=== PATIENT | male | born 1965 | race Caucasian/White ===

== ENCOUNTER 2018-09-02 16:06 | Emergency (ER) | payer BC ==
[2018-09-02] MEDS ORDERED: NS 0.9% 1000 ML* 1,000 ML IV ONE (16:38)
--- NOTE | 2018-09-02 16:53 | ED ---
Dizziness - HPI Summary HPI Summary: This pt is a 52 y/o male presenting to [facility] via EMS for dizziness that began suddenly today. Pt reports he was at work today where he was very physical moving boxes and furniture. He notes that he became dizzy suddenly. Additionally states nausea, tingling in fingers, feeling pulse in denominational and jaw , having urge to have a bowel movement. Denies chest pain, abd pain, SOB, LOC, syncope. Currently reports feeling dizzy, nauseous, with a very slight headache. Pt has never had this happen in the past. Denies any PMHx. Pt drinks alcohol rarely. No drug or tobacco use. - History Of Current Complaint Chief Complaint: EDDizziness Stated Complaint: DIZZINESS Time Seen by Provider: 09/02/18 16:24 Hx Obtained From: Patient Onset/Duration: Suddenly Timing: Minutes Severity Currently: Moderate Character: Dizzy Aggravating Factor(s): Nothing Alleviating Factor(s): Nothing Associated Signs And Symptoms: Positive: Nausea, Other: - POS: slight headache, tingling in fingers, urge to have bowel movement. NEG: LOC, syncope. Negative: Vomiting, Chest Pain, SOB, Fever, Chills - Allergies/Home Medications Allergies/Adverse Reactions: Allergies Allergy/AdvReac Type Severity Reaction Status Date / Time bee venom protein (honey bee) Allergy Swelling Verified 09/02/18 16:23 tomato Allergy Hives Verified 09/02/18 16:23 PMH/Surg Hx/FS Hx/Imm Hx Endocrine/Hematology History: Denies: Hx Anticoagulant Therapy, Hx Diabetes Cardiovascular History: Denies: Hx Hypertension Infectious Disease History: No Infectious Disease History: Denies: Traveled Outside the [place] in Last 30 Days - Family History Family History: Mother with lung CA - Social History Alcohol Use: Occasionally Substance Use Type: Reports: None Smoking Status (MU): Never Smoked Tobacco Review of Systems Negative: Fever, Chills Negative: Chest Pain Negative: Shortness Of Breath Gastrointestinal: Other - POS: urge to have bowel movement Positive: Nausea. Negative: Abdominal Pain, Vomiting Neurological: Other - POS: dizziness Positive: Headache, Paresthesia - in fingers. Negative: Syncope All Other Systems Reviewed And Are Negative: Yes Physical Exam - Summary Physical Exam Summary: Appearance: Well appearing, no pain distress Skin: warm, dry, reflects adequate perfusion Head/face: normal Eyes: EOMI, JANIE ENT: normal Neck: supple, nontender Respiratory: CTA, breath sounds present Cardiovascular: RRR, pulses symmetrical Abdomen: nontender, soft Bowel: present Musculoskeletal: normal, strength/ROM intact Neuro: normal, sensory motor intact, A&Ox3 Triage Information Reviewed: Yes Vital Signs On Initial Exam: Initial Vitals Temp Pulse Resp BP Pulse Ox 97.7 F 86 17 108/77 94 09/02/18 16:18 09/02/18 16:18 09/02/18 16:18 09/02/18 16:18 09/02/18 16:18 Vital Signs Reviewed: Yes - Cooper Coma Scale Best Eye Response: 4 - Spontaneous Best Motor Response: 6 - Obeys Commands Best Verbal Response: 5 - Oriented Coma Scale Total: 15 Diagnostics - Vital Signs Vital Signs Temp Pulse Resp BP Pulse Ox 09/02/18 16:18 97.7 F 86 17 108/77 94 - Laboratory Result Diagrams: 09/02/18 17:45 09/02/18 17:45 Lab Statement: Any lab studies that have been ordered have been reviewed, and results considered in the medical decision making process. - Radiology Chest XR Radiology Interpretation Completed By: Radiologist Summary of Radiographic Findings: IMPRESSION: No radiographic evidence for acute cardiopulmonary abnormality on this portable chest x-ray. Dr. Akers has reviewed this report. - CT Brain CT CT Interpretation Completed By: Radiologist Summary of CT Findings: IMPRESSION: No evidence of intracranial hemorrhage is noted. Dr. Akers has reviewed this report. - EKG 16:47 Cardiac Rate: NL - at 94 bpm EKG Rhythm: Sinus Rhythm Summary of EKG Findings: No acute changes. Re-Evaluation - Re-Evaluation First Eval Re-Evaluation Time: 18:31 Comment: Pt is still nauseous. Will wait for second troponin. Dizzy Course/Dx - Course Assessment/Plan: Pt is a 52 y/o male, with no PMHx, who presents for dizziness that began suddenly today. Pt reports he was at work today where he was very physical moving boxes and furniture. Additionally states nausea, tingling in fingers, feeling pulse in denominational and jaw, having urge to have a bowel movement. Chest XR is negative. Brain CT shows no evidence of intracranial hemorrhage is noted. Blood work was obtained. On re-evaluation pt is still nauseous. Will obtain second troponin, around 20:00. Therefore pt will be signed out to Dr. Pereira, pending disposition, awaiting test results. - Diagnoses Differential Diagnosis/HQI/PQRI: Coronary Artery Disease, Dysrhythmia, Hypovolemia, Vasovagal Reaction Provider Diagnoses: Dizziness Discharge - Sign-Out/Discharge Documenting (check all that apply): Sign-Out Patient Signing out patient TO: Claude Pereira - pending dispo, awaiting second trop - Discharge Plan Condition: Stable Referrals: Brit Tapia MD [Primary Care Provider] - - Billing Disposition and Condition Condition: STABLE - Attestation Statements Document Initiated by Scribe: Yes Documenting Scribe: Jacqui Calzada Provider For Whom Blas is Documenting (Include Credential): Giorgio Akers MD Scribe Attestation: Jacqui Mae, scribed for Giorgio Akers MD on 09/02/18 at 1835. Scribe Documentation Reviewed: Yes Provider Attestation: The documentation as recorded by the Jacqui ro accurately reflects the service I personally performed and the decisions made by Giorgio rodriguez MD
--- NOTE | 2018-09-02 17:09 | RAD ---
Indication: Dizziness and headache. CT of the brain was performed without IV contrast. Ventricular structures are midline. No midline shift is noted. The extra-axial spaces are unremarkable. There is no evidence of intracranial mass or hemorrhage. No other high or low density lesions are identified. Mastoid air cells and paranasal sinuses are otherwise unremarkable. IMPRESSION: No evidence of intracranial hemorrhage is noted
--- OUTSIDE RECORDS SUMMARY | 2018-09-02 17:12 | XMS REPORT | Continuity of Care Document ---
:1965 External Reference #:[id number] Author Name Brit Tapia MD Address [address] [place] [address] Care Team Providers Name Role Phone Brit Tapia MD FACP Primary Care Physician Unavailable Payers Type Date Identification Numbers Payment Provider Subscriber Effective: Policy Number: BS Of ABBI Chong 2010 [id number] Joaquín Expires: 2013 PayID: [id number] [address] [address] [place] [address] Effective: 2013 Policy Number: [id number] BS Of ABBI Yanes Expires: 2014 PayID: [id number] [facility] [address] [place] [address] Effective: 2014 Policy Number: [id number] BS Of ABBI Yanes PayID: [id number] [facility] [id number] [place] [address] Advance Directives Description No Information Available Problems Date Description Provider Status Onset: 09/07/2015 Obesity Brit Tapia MD Active Onset: 09/07/2015 Mixed hyperlipidemia Brit Tapia MD Active Onset: 07/18/2012 Impaired fasting glycaemia Brit Tapia MD Active Family History Date Family Member(s) Problem(s) Comments General Heart Disease Paternal GF S/P CABG x 3 in his 60's. "Men live for long" Onset: (age 65 Years) Father Heart Disease "No contact with father" Onset: (age 59 Years) Mother Lung Cancer Smoker Social History Type Date Description Comments Sex Unknown Marital Status 04/2012 Tobacco Use Start: Unknown Never Smoked Cigarettes ETOH Use 2012 Currently consumes 2-3 per week, wine, alcohol rum or beer. Tobacco Use Start: Unknown Patient has never smoked Smoking Status Reviewed: 01/30/17 Patient has never smoked Exercise 2012 Does not exercise Type/Frequency Allergies, Adverse Reactions, Alerts Description No Known Drug Allergies Medications Medication Date Status Form Strength Qnty SIG Indications Ordering Provider Celecoxib Active Capsules 200mg 30caps 1 by [id number] Perea A 8 mouth MD Willie every day with food for 2 weeks and than as needed. M54.16 Cyclobenzaprine 08/05/2018 Active Tablets 10mg 10tabs 1/2-1 by M5Reece.Latrice WernerPerea HCL mouth every A Wat[place], night as MD needed No Active 01/30/2017 - Hx Perea Medications 08/05/2018 Alissa Tapia MD Cephalexin 04/19/2016 - Hx Tablets 500mg 10tabs take 1 L05.01 Perea 05/04/2016 tablet by A Wattoo, mouth 2 MD times per day for infection No Active 07/01/2015 - Hx Unknown Medications 04/19/2016 Amoxicillin 06/21/2015 - Hx Capsules 500mg 30caps 1 by mouth 461.1 Perea 07/01/2015 three times A alissa Tapia MD No Active 07/18/2012 - Hx Perea Medications 06/21/2015 Alissa Tapia MD Aspirin 11/02/2008 - Hx Tablets 81mg 1 PO qd 278.00 Perea 11/05/2010 Alissa Tapia MD Immunizations CPT Code Status Date Vaccine Lot # [id number] Given 09/07/2015 Influenza Virus Split 3 Yrs And Above For Flu [id number] Intramuscular Use 83056 Given 08/06/2014 Influenza Virus Split 3 Yrs And Above For [id number] Flu Vacc Intramuscular Use 99706 Given 07/18/2012 Influenza Virus Split 3 Yrs And Above For FLU [id number] Intramuscular Use 62019 Given 10/07/2008 Tdap-Tetanus, Diphtheria Toxoids/Acellular TDAP [id number] Pertussis Vaccine 7+ 65586 Refused 11/30/2011 Influenza Virus Split 3 Yrs And Above For Intramuscular Use [id number] Refused 10/07/2008 Influenza Virus Vaccine Split Virus Use For Individual 3Yr Older Vital Signs Date Vital Result Comment 08/05/2018 12:46pm Heart Rate 80 /min BP Systolic 110 mmHg BP Diastolic 70 mmHg 05/15/2018 2:47pm Heart Rate 74 /min BP Systolic 110 mmHg BP Diastolic 75 mmHg BMI (Body Mass Index) 34.9 kg/m2 Weight 228.00 lb Height 67.75 inches 5'7.75" 01/30/2017 2:36pm Body Temperature 98.0 F O2 % BldC Oximetry 97 % Heart Rate 68 /min BP Systolic 122 mmHg BP Diastolic 80 mmHg BMI (Body Mass Index) 35.7 kg/m2 Weight 235.00 lb Height 68 inches 5'8" 09/07/2015 3:16pm O2 % BldC Oximetry 98 % Heart Rate 64 /min BP Systolic 122 mmHg BP Diastolic 75 mmHg BMI (Body Mass Index) 35.0 kg/m2 Weight 227.00 lb Height 67.5 inches 5'7.50" 06/21/2015 9:45am Body Temperature 98.4 F O2 % BldC Oximetry 97 % Heart Rate 80 /min BP Systolic 115 mmHg BP Diastolic 80 mmHg 06/17/2015 4:22pm Body Temperature 99.0 F Heart Rate 78 /min BP Systolic 115 mmHg BP Diastolic 75 mmHg 08/06/2014 1:03pm Body Temperature 98.1 F O2 % BldC Oximetry 96 % Heart Rate 92 /min BMI (Body Mass Index) 33.1 kg/m2 Weight 218.00 lb in office, clothed, with shoes Height 68 inches 5'8" 06/03/2013 1:36pm Heart Rate 70 /min BP Systolic 118 mmHg BP Diastolic 75 mmHg BMI (Body Mass Index) 34.2 kg/m2 Weight 225.00 lb Height 68 inches 5'8" 10/01/2012 9:37am BMI (Body Mass Index) 34.4 kg/m2 Weight 226.00 lb Height 68 inches 5'8" 07/18/2012 1:40pm Body Temperature 98.4 F O2 % BldC Oximetry 97 % Ra, AT Rest Heart Rate 91 /min BP Systolic 110 mmHg BP Diastolic 70 mmHg BMI (Body Mass Index) 34.1 kg/m2 Weight 224.00 lb Height 68 inches 5'8" 11/02/2008 9:44am Heart Rate 66 /min BP Systolic 128 mmHg BP Diastolic 80 mmHg BMI (Body Mass Index) 32.2 kg/m2 Weight 212.00 lb Height 68 inches 5'8" 10/07/2008 10:25am Body Temperature 97.7 F O2 % BldC Oximetry 98 % Heart Rate 87 /min BP Systolic 130 mmHg Bilateral BP Diastolic 85 mmHg Bilateral BP Systolic Recheck 130 mmHg BP Diastolic Recheck 85 mmHg BMI (Body Mass Index) 32.2 kg/m2 Weight 212.00 lb Height 68 inches 5'8" Results Test Date Facility Test Result H/L Range Note Urinalysis Profile 05/10/2018 [facility] [place] [address] [phone] Urine Appearance Clear Urine Specific Mozier 1.023 1.010-1.030 Urine pH 5.0 5-9 Urine Urobilinogen Negative Negative Urine Ketones 1+ Negative Urine Protein Negative Negative Urine Leukocytes Negative Negative Urine Blood Negative Negative Urine Nitrite Negative Negative Urine Bilirubin Negative Negative Urine Glucose Negative Negative CBC No Diff 05/10/2018 [facility] White Blood 7.1 10^3/uL 3.5 -10.8 [place] [address] Count [phone] Red Blood Count 5.71 10^6/uL High 4.00-5.40 Hemoglobin 17.1 g/dL 14.0-18.0 Hematocrit 49 % 42-52 Mean Corpuscular Volume 86 fL 80-94 Mean Corpuscular Hemoglobin 30 pg 27-31 Mean Corpuscular HGB Conc 35 g/dL 31-36 Red Cell Distribution Width 13 % 10.5-15 Platelet Count 215 10^3/uL 150-450 Mean Platelet Volume 8.5 um3 7.4-10.4 Comp Metabolic Panel 05/10/2018 [facility] Sodium 140 mmol/L 135-145 [place] [address] [phone] Potassium 4.5 mmol/L 3.5-5.0 Chloride 104 mmol/L 101-111 Co2 Carbon Dioxide 28 mmol/L 22-32 Anion Gap 8 mmol/L 2-11 Glucose 91 mg/dL 70-100 Blood Urea Nitrogen 14 mg/dL 6-24 Creatinine 0.80 mg/dL 0.67-1.17 BUN/Creatinine Ratio 17.5 8-20 Calcium 9.6 mg/dL 8.6-10.3 Total Protein 6.8 g/dL 6.4-8.9 Albumin 4.4 g/dL 3.2-5.2 Globulin 2.4 g/dL 2-4 Albumin/Globulin Ratio 1.8 1-3 Total Bilirubin 0.70 mg/dL 0.2-1.0 Alkaline Phosphatase 66 U/L 34-104 Alt 19 U/L 7-52 Ast 17 U/L 13-39 Egfr Non- 101.9 >60 Egfr 123.3 >60 1 Lipid Profile 05/10/2018 [facility] Triglycerides 82 mg/dL < 150 2 (Trig/Chol/HDL) [place] [address] [phone] Cholesterol 181 mg/dL <200 3 HDL Cholesterol 35.2 mg/dL Low >40 4 LDL Cholesterol 129 mg/dL <160 5 Laboratory test 05/10/2018 [facility] Hemoglobin A1c 5.2 % 4.0-5.6 6 [place] [address] (Glyco HGB) [phone] PSA Screening 1.307 ng/mL 0-4.000 7 Order 02/09/2017 [facility] Colonoscopy Polyps 5 [place] [address] F/U [phone] Laboratory test 02/09/2017 [facility] Surgical SEE RESULT 8 [place] [address] Pathology BELOW [phone] Comp Metabolic 01/24/2017 [facility] Sodium 139 mmol/L 133-1 [place] [address] 45 [phone] Potassium 4.8 mmol/L 3.5-5.0 Chloride 104 mmol/L 101-111 Co2 Carbon Dioxide 32 mmol/L 22-32 Anion Gap 3 mmol/L 2-11 Glucose 105 mg/dL High 70-100 Blood Urea Nitrogen 12 mg/dL 6-24 Creatinine 0.89 mg/dL 0.67-1.17 BUN/Creatinine Ratio 13.5 8-20 Calcium 9.6 mg/dL 8.6-10.3 Total Protein 6.8 g/dL 6.4-8.9 Albumin 4.1 g/dL 3.2-5.2 Globulin 2.7 g/dL 2-4 Albumin/Globulin Ratio 1.5 1-3 Total Bilirubin 0.60 mg/dL 0.2-1.0 Alkaline Phosphatase 64 U/L 34-104 Alt 23 U/L 7-52 Ast 15 U/L 13-39 Egfr Non- 90.5 >60 Egfr 116.4 >60 9 Lipid Profile 01/24/2017 [facility] Triglycerides 125 mg/dL < 150 10 (Trig/Chol/HDL) [place] [address] [phone] Cholesterol 179 mg/dL <200 11 HDL Cholesterol 37.9 mg/dL Low >140 12 LDL Cholesterol 116 mg/dL <160 13 Laboratory test 01/24/2017 [facility] Hemoglobin A1c 4.9 % Less than 14 [place] [address] (Glyco HGB) 6.0 [phone] PSA Screening 1.400 ng/mL 0-4.000 15 Urinalysis Profile 01/24/2017 [facility] [place] [address] [phone] Urine Appearance Cloudy Urine Specific Mozier 1.024 1.010-1.030 Urine pH 5.0 5-9 Urine Urobilinogen Negative Negative Urine Ketones Negative Negative Urine Protein Negative Negative Urine Leukocytes Negative Negative Urine Blood Negative Negative Urine Nitrite Negative Negative Urine Bilirubin Negative Negative Urine Glucose Negative Negative CBC No Diff 01/24/2017 [facility] White Blood 7.5 10^3/uL 3.5 -10.8 [place] [address] Count [phone] Red Blood Count 5.97 10^6/uL High 4.0-5.4 Hemoglobin 17.2 g/dL 14.0-18.0 Hematocrit 51 % 42-52 Mean Corpuscular Volume 86 fL 80-94 Mean Corpuscular Hemoglobin 29 pg 27-31 Mean Corpuscular HGB Conc 34 g/dL 31-36 Red Cell Distribution Width 14 % 10.5-15 Platelet Count 206 10^3/uL 150-450 Mean Platelet Volume 8 um3 7.4-10.4 CBC No Diff 10/25/2015 [facility] White Blood 7.2 10^3/uL 3.5 -10.8 [place] [address] Count [phone] Red Blood Count 5.61 10^6/uL High 4.0-5.4 Hemoglobin 16.7 g/dL 14.0-18.0 Hematocrit 50 % 42-52 Mean Corpuscular Volume 88 fL 80-94 Mean Corpuscular Hemoglobin 30 pg 27-31 Mean Corpuscular HGB Conc 34 g/dL 31-36 Red Cell Distribution Width 13 % 10.5-15 Platelet Count 195 10^3/uL 150-450 Mean Platelet Volume 8 um3 7.4-10.4 Comp Metabolic Panel 10/25/2015 [facility] Sodium 140 mmol/L 133-145 [place], [place] [address] [phone] Potassium 4.3 mmol/L 3.5-5.0 Chloride 106 mmol/L 101-111 Co2 Carbon Dioxide 30 mmol/L 22-32 Anion Gap 4 mmol/L 2-11 Glucose 108 mg/dL High 70-100 Blood Urea Nitrogen 14 mg/dL 6-24 Creatinine 0.91 mg/dL 0.67-1.17 BUN/Creatinine Ratio 15.4 8-20 Calcium 9.1 mg/dL 8.6-10.3 Total Protein 6.5 g/dL 6.4-8.9 Albumin 4.0 g/dL 3.2-5.2 Globulin 2.5 g/dL 2-4 Albumin/Globulin Ratio 1.6 1-3 Total Bilirubin 0.40 mg/dL 0.2-1.0 Alkaline Phosphatase 69 U/L 34-104 Alt 14 U/L 7-52 Ast 12 U/L Low 13-39 Egfr Non- 88.6 >60 Egfr 113.9 >60 16 Laboratory test 10/25/2015 [facility] Hemoglobin A1c 5.2 % Less than 17 [place] [address] (Glyco HGB) 6.0 [phone] Insulin Level 13.6 mcIU/mL 2.6 - 24.9 18 Lipid Profile 10/25/2015 [facility] Triglycerides 82 mg/dL 19 (Trig/Chol/HDL) [place], [place] [id number] [phone] Cholesterol 156 mg/dL 20 HDL Cholesterol 39.5 mg/dL 21 LDL Cholesterol 100 mg/dL 22 Order 07/03/2013 [facility] Colonoscopy Normal [address] [place] [address] [phone] Surgical 09/12/2012 [facility] S RUN DATE: 23 [place] [address] <SEE [phone] NOTE> CBC No Diff 07/23/2012 [facility] White Blood 7.4 CUMM 4.8-1 [place] [address] Count 0.8 [phone] Red Cell Count 5.67 CUMM 4.6-6.2 Hemoglobin 17.3 g/dL 14.0-18.0 Hematocrit 50 % 42-52 Mean Corpuscular Volume 88 um3 80-94 Mean Corpuscular Hemoglob 31 pg 27-31 Mean Corpuscular HGB Cone 35 g/dL 32-36 Redcell Distribution WDTH 14 % 10.5-15 Platelet Count 207 CUMM 150-450 Mean Platelet Volume 9.1 um3 7.4-10.4 Laboratory test 07/23/2012 [facility] Ferritin 172 NG/ML 24- 336 [place] [address] [phone] Iron & Iron Binding 07/23/2012 [facility] Iron Total 114 g/dL 45-182 [place] [address] [phone] Unsaturated Iron Binding 244 g/dL Total Iron Binding Capacity 358 g/dL 250-450 % Iron Saturation 32 % 15-55 Laboratory test finding 07/23/2012 [facility] Insulin SEE BELOW () 24 [place] [address] [phone] Glucose 98 mg/dL 70-100 Laboratory test 07/23/2012 [facility] Hemoglobin A1c 4.8 % Less Than 25 [place] [address] 6.0 [phone] Lipid Profile 07/23/2012 [facility] Triglyceride 233 High 40- 200 (Trig/Chol/HDL) [place] [address] mg/dL [phone] Cholesterol 202 mg/dL High Less Than 200 26 High Density Lipoprotein 38 mg/dL Low 40-60 27 Cholesterol/HDL Ratio 5.32 AVERAGE High 1-4.97 Low Density Lipoprotein 117 mg/dL Less Than 160 28 Basic Metabolic Panel 06/15/2012 [facility] Sodium 140 mmol/L 135-145 [place] [address] [phone] Potassium 4.1 mmol/L 3.5-5.0 Chloride 104 mmol/L 101-111 Co2 (Carbon Dioxide) 31.0 mmol/L 22-32 Anion Gap 5.0 mmol/L 2-11 29 Glucose 133 mg/dL High 70-100 BUN 8 mg/dL 6-24 Creatinine 1.3 mg/dL 0.50-1.40 One Over Creatinine 0.76 BUN/Creatinine Ratio 6.2 Low 8-20 Calcium 9.2 mg/dL 8.1-9.9 eGFR Non- 59.7 > 60 eGFR 76.8 > 60 30 CBC No Diff 06/15/2012 [facility] White Blood 10.9 CUMM High 4.8-10.8 [place] [address] Count [phone] Red Cell Count 5.12 CUMM 4.6-6.2 Hemoglobin 15.4 g/dL 14.0-18.0 Hematocrit 45 % 42-52 Mean Corpuscular Volume 89 um3 80-94 Mean Corpuscular Hemoglob 30 pg 27-31 Mean Corpuscular HGB Cone 34 g/dL 32-36 Redcell Distribution WDTH 13 % 10.5-15 Platelet Count 140 CUMM Low 150-450 Mean Platelet Volume 8.6 um3 7.4-10.4 Comp Metabolic Panel 06/14/2012 [facility] Sodium 139 mmol/L 135-145 [place] [address] [phone] Potassium 3.7 mmol/L 3.5-5.0 Chloride 102 mmol/L 101-111 Co2 (Carbon Dioxide) 28.0 mmol/L 22-32 Anion Gap 9.0 mmol/L 2-11 31 Glucose 142 mg/dL High 70-100 BUN 8 mg/dL 6-24 Creatinine 0.8 mg/dL 0.50-1.40 One Over Creatinine 1.25 BUN/Creatinine Ratio 10.0 8-20 Calcium 9.6 mg/dL 8.1-9.9 Total Protein 7.3 GM/DL 6.2-8.1 Albumin 4.2 GM/DL 3.6-5.4 Globulin 3.1 GM/DL 2-4 Albumin/Globulin Ratio 1.4 1-3 Bilirubin Total 1.0 mg/dL 0.4-1.5 32 Alkaline Phosphatase 64 U/L 39-117 Alt (SGPT) 22 U/L 17-63 Ast (Sgot) 19 U/L 12-42 eGFR Non- 104.5 > 60 eGFR 134.4 > 60 33 CBC Auto Diff 06/14/2012 [facility] White Blood 22.1 CUMM High 4.8-10.8 [place] [address] Count [phone] Red Cell Count 5.48 CUMM 4.6-6.2 Hemoglobin 16.9 g/dL 14.0-18.0 Hematocrit 48 % 42-52 Mean Corpuscular Volume 87 um3 80-94 Mean Corpuscular Hemoglob 31 pg 27-31 Mean Corpuscular HGB Cone 35 g/dL 32-36 Redcell Distribution WDTH 13 % 10.5-15 Platelet Count 188 CUMM 150-450 Mean Platelet Volume 8.4 um3 7.4-10.4 Gran % 89.6 % High 38-83 Lymph % 4.4 % Low 20-45 Mononuclear % 5.4 % 1-9 Eosinophil % 0 % 0-6 Basophil % 0.6 % 0-2 Abs Lymphs 1.0 1.0-4.8 Abs Mononuclear 1.2 High 0-0.8 Absolute Neutrophil Count 19.8 High 1.5-7.7 Abs Eosinophils 0 0-0.6 Abs Basophils 0.1 0-0.2 Urinalysis 06/14/2012 [facility] U[place] [address] [phone] Appearance-Urine CLEAR Clear Specific Mozier-Ur 1.023 1.010-1.030 Esterase-Urine NEGATIVE Negative Nitrite NEGATIVE Negative Fedgxmsisjkn-Ev-BMT NEGATIVE Negative Protein-Urine TRACE Negative PH-Urine 7.0 5-9 Blood-Urine NEGATIVE Negative Ketones-Urine NEGATIVE Negative Bilirubin-Ur NEGATIVE Negative Glucose-Urine NEGATIVE Negative Hemogram 10/08/2008 [facility] White Blood Count 7.9 CUMM 4.8 -10.8 [place] [address] [phone] Red Cell Count 5.90 CUMM High 4.2-5.4 Hemoglobin 17.4 g/dL High 12.0-16.0 Hematocrit 50 % High 35-47 Mean Corpuscular Volume 85 um3 79-97 Mean Corpuscular Hemoglob 30 pg 27-31 Mean Corpuscular HGB Cone 35 g/dL 32-36 Platelet Count 224 CUMM 150-450 Comp Metabolic Panel 10/08/2008 [facility] Sodium 138 mmol/L 135-145 [place], [place] [id number] [phone] Potassium 4.3 mmol/L 3.5-5.0 Chloride 101 mmol/L 101-111 Co2 (Carbon Dioxide) 31.0 mmol/L 22-32 Anion Gap 6.0 mmol/L 2-11 34 Glucose 101 mg/dL High 70-100 35 BUN 13 mg/dL 6-24 Creatinine 0.85 mg/dL 0.50-1.40 One Over Creatinine 1.10 BUN/Creatinine Ratio 15.3 8-20 Calcium 9.9 mg/dL 8.1-9.9 36 Total Protein 7.1 GM/DL 6.2-8.1 Albumin 4.2 GM/DL 3.6-5.4 Globulin 2.9 GM/DL 2-4 Albumin/Globulin Ratio 1.4 1-3 Bilirubin Total 1.1 mg/dL 0.4-1.5 Alkaline Phosphatase 61 U/L 30-110 Alt (SGPT) 18 U/L 14-54 Ast (Sgot) 15 U/L 12-42 Laboratory test 10/08/2008 [facility] TSH 0.99 MIU/ML 0.34- 5.60 finding [place], [place] [id number] [phone] Lipid Profile 10/08/2008 [facility] Triglyceride 150 mg/dL 40 -200 (Trig/Chol/HDL) [place], [place] [id number] [phone] Cholesterol 195 mg/dL Less Than 200 37 High Density Lipoprotein 36 mg/dL Low 40-60 38 Cholesterol/HDL Ratio 5.42 AVERAGE High 1-4.44 Low Density Lipoprotein 129 mg/dL High Less Than 100 39 Laboratory test 10/08/2008 [facility] CRP High 1.3 < 7.48 [place] [address] Sensitivity [phone] C Reactive Protein High Sensit 1.3 mg/L < 7.48 40 1 Because ethnic data is not always readily available, this report includes an eGFR for both -Americans and non- Americans. The National Kidney Disease Education Program (NKDEP) does not endorse the use of the MDRD equation for patients that are not between the ages of 18 and 70, are , have extremes of body size, muscle mass, or nutritional status, or are non- or non-. According to the National Kidney Foundation, irrespective of diagnosis, the stage of the disease is based on the level of kidney function: Stage Description GFR(mL/min/1.73 m(2)) 1 Kidney damage with normal or decreased GFR 90 2 Kidney damage with mild decrease in GFR 60-89 3 Moderate decrease in GFR 30-59 4 Severe decrease in GFR 15-29 5 Kidney failure <15 (or dialysis) 2 Desirable: <150 Borderline High: 150-199 High: 200-499 Very High: >500 3 Desirable: <200 Borderline High: 200-239 High: >239 4 Low: <40 Desirable: 40-60 High: >60 5 Desirable: <100 Near Optimal: 100-129 Borderline High: 130-159 High: 160-189 Very High: >189 6 Therapeutic target for the treatment of diabetes mellitus patients is <7% HBA1C, and in selective patients <6.0%. Please refer to [place] [employer] Association diabetic care guidelines for further information. 7 Serum levels of PSA measured using the Yessenia Teodoro DXI Hybritech immunoassay should not be interpreted as absolute evidence of the presence or absence of disease. The PSA value should be used in conjunction with other pertinent clinical diagnostic procedures. The values obtained with different assay methods or kits cannot be used interchangeably. 8 SEE RESULT BELOW Name: HITESH SOTO : [address]: Marito Vazquez MD Acct: [id number] Unit: [id number] AGE: 51 Location: [facility] Re02/09/17 SEX: M Status: DEP REF SPEC: [id number] VERITO: 02/09/17-[address] [facility] [address]: Marito Vazquez MD REQ: [id number] RECD: 02/09/17 STATUS: CASSIE MURRY DR: Brit Tapia MD _ ORDERED: LEVEL IV/3 FINAL DIAGNOSIS 1. Colon, cecal, biopsy: -- Tubular adenoma. -- No high grade dysplasia or malignancy. 2. Colon, ileocecal polyp, biopsy: -- Tubular adenoma. -- No high grade dysplasia or malignancy. 3. Colon, mid descending, biopsy: -- Tubular adenoma. -- No high grade dysplasia or malignancy. POST-OPERATIVE DIAGNOSIS Colonoscopy to cecum with ease, excellent prep. Conclusions/Plan: Three polyps; to be determined GROSS DESCRIPTION 1. The specimen is received in formalin labeled, Biopsy Cecal Cap Polyp, and consists of two speckled mckinley-pink irregular to polypoid soft tissue fragments measuring 0.8 x 0.4 by up to 0.2 cm and 0.9 x 0.3 by up to 0.2 cm, which are entirely submitted in one cassette. 2. The specimen is received in formalin labeled, Biopsy Ileocecal Polyp, and consists of a 0.3 x 0.2 x 0.2 cm mckinley-white irregular to polypoid soft tissue fragment, which is entirely submitted in one cassette. 3. The specimen is received in formalin labeled, Mid Descending Colon Polyp , and consists of two mckinley-pink irregular to polypoid soft tissue fragments measuring 0.4 x 0.2 x 0.1 cm and CONTINUED ON NEXT PAGE * ML=Testing performed at Main Lab DEPARTMENT OF PATHOLOGY, [address] [place] [address] Enrrique Del Real M.D. Director [facility] # [id number] RUN DATE: 02/12/17 [facility] LAB LIVE PAGE 2 Patient: HITESH SOTO [id number] (Continued) GROSS DESCRIPTION (Continued) GROSS DESCRIPTION (Continued) 0.5 x 0.4 x 0.2 cm, which are entirely submitted in one cassette. Signed (signature on file) Enrrique Del Real MD [id number] END OF REPORT * ML=Testing performed at Main Lab DEPARTMENT OF PATHOLOGY, [address] [place] [address] Enrrique Del Real M.D. Director [facility] # [id number] 9 Because ethnic data is not always readily available, this report includes an eGFR for both -Americans and non- Americans. The National Kidney Disease Education Program (NKDEP) does not endorse the use of the MDRD equation for patients that are not between the ages of 18 and 70, are , have extremes of body size, muscle mass, or nutritional status, or are non- or non-. According to the National Kidney Foundation, irrespective of diagnosis, the stage of the disease is based on the level of kidney function: Stage Description GFR(mL/min/1.73 m(2)) 1 Kidney damage with normal or decreased GFR 90 2 Kidney damage with mild decrease in GFR 60-89 3 Moderate decrease in GFR 30-59 4 Severe decrease in GFR 15-29 5 Kidney failure <15 (or dialysis) 10 Desirable <150 Borderline high 150-199 High 200-499 Very High >500 11 Desirable <200 Borderline high 200-239 High >239 12 Low <40 Desirable: 40-60 High: >60 13 Desirable: <100 mg/dL Near Optimal: 100-129 mg/dL Borderline High: 130-159 mg/dL High: 160-189 mg/dL Very High: >189 mg/dL 14 Therapeutic target for the treatment of diabetes Mellitus patients is <7% HBA1C, and in selective patients <6.0%.Please refer to [place] [employer] Association Diabetic care guidelines for further information. 15 Serum levels of PSA measured using the Yessenia Matchalarm DXI Hybritech immunoassay should not be interpreted as absolute evidence of the presence or absence of disease. The PSA value should be used in conjunction with other pertinent clinical diagnostic procedures. The values obtained with different assay methods or kits cannot be used interchangeably. 16 Because ethnic data is not always readily available, this report includes an eGFR for both -Americans and non- Americans. The National Kidney Disease Education Program (NKDEP) does not endorse the use of the MDRD equation for patients that are not between the ages of 18 and 70, are , have extremes of body size, muscle mass, or nutritional status, or are non- or non-. According to the National Kidney Foundation, irrespective of diagnosis, the stage of the disease is based on the level of kidney function: Stage Description GFR(mL/min/1.73 m(2)) 1 Kidney damage with normal or decreased GFR 90 2 Kidney damage with mild decrease in GFR 60-89 3 Moderate decrease in GFR 30-59 4 Severe decrease in GFR 15-29 5 Kidney failure <15 (or dialysis) 17 Therapeutic target for the treatment of diabetes Mellitus patients is <7% HBA1C, and in selective patients <6.0%.Please refer to [place] [employer] Association Diabetic care guidelines for further information. 18 Test Performed by: [facility] [address] [place] [address] Landscape Management Technician: Kong Del Real II, M.D., Ph.D. 19 Desirable <150 Borderline high 150-199 High 200-499 Very High >500 20 Desirable <200 Borderline high 200-239 High >239 21 Low <40 Desirable: 40-60 High: >60 22 Desirable: <100 mg/dL Near Optimal: 100-129 mg/dL Borderline High: 130-159 mg/dL High: 160-189 mg/dL Very High: >189 mg/dL 23 RUN DATE: 09/13/12 [facility] LAB LIVE PAGE 1 RUN TIME: [address] [place] [address] Specimen Inquiry Name: HITESH SOTO : [address]: Milan Navarro MD Acct: [id number] Unit: [id number] AGE: 46 Location: ENDO Re09/12/12 SEX: M Status: REG REF SPEC: [id number] VERITO: 09/12/12- SUBM DR: Milan Navarro MD REQ: [id number] RECD: 09/12/12 STATUS: CASSIE MURRY DR: Brit Tapia MD _ ORDERED: LEVEL IV/3 FINAL DIAGNOSIS 1. Colon, 18 cm., biopsy: A. Villoglandular adenoma. B. No high grade dysplasia identified. 2. Colon, 18 cm., biopsy: A. Villoglandular adenoma. B. No high grade dysplasia identified. 3. Colon, 18 cm., biopsy: A. Villoglandular adenoma. B. No high grade dysplasia identified. CLINICAL HISTORY Rectal bleeding; screening POST-OPERATIVE DIAGNOSIS Colonoscopy to cecum, good prep - 3 cm. pedunculated polyp at 18 cm.; colon polypectomy GROSS DESCRIPTION 1. The specimen is received in formalin labelled Hitesh AlissaElizabeth Soto, Colon Polyp at 18 cm., and consists of a lobulated mckinley to brown-red, polypoid mass measuring 2.8 x 2.5 x 2.0 cm. The specimen is serially sectioned and submitted entirely in 1A through 1D. 2. The specimen is received in formalin labelled Christianbret AlissaElizabeth Soto, Colon Polyp at 18 cm., and consists of three mckinley, irregular, polypoid fragments measuring 1.9 x 1.1 x 0.7 cm. in aggregate. Submitted entirely, one cassette. 3. The specimen is received in formalin labelled Hitesh AlissaElizabeth Soto, Colon Polyp at 18 cm., and CONTINUED ON NEXT PAGE * ML=Testing performed at Main Lab DEPARTMENT OF PATHOLOGY, [address] [place] [address] Enrrique Del Real M.D. Director [facility] Permit #[id number] RUN DATE: 09/13/12 [facility] LAB LIVE PAGE 2 RUN TIME: [address] [place] [id number] Specimen Inquiry Patient: HITESH SOTO [id number] (Continued) GROSS DESCRIPTION (Continued) GROSS DESCRIPTION (Continued) consists of multiple lobulated mckinley to brown-red fragments measuring 2.2 x 1.8 x 0.6 cm. in aggregate. Submitted entirely, one cassette. Signed (signature on file) Enrrique Del Real MD [id number] END OF REPORT * ML=Testing performed at Main Lab DEPARTMENT OF PATHOLOGY, [address] [place] [address] Enrrique Del Real M.D. Director [facility] Permit #[id number] Insulin, S was cancelled on 07/25/2012 at 13:18; Hemolyzed. Test Performed by: [place] [address] Landscape Management Technician: Vito Shay III, M.D. 25 THERAPEUTIC TARGET FOR THE TREATMENT OF DIABETES MELLITUS PATIENTS IS <7% HBA1C, AND IN SELECTIVE PATIENTS <6.0%. PLEASE REFER TO [place] [employer] DIABETIC CARE GUIDELINES FOR FURTHER INFORMATION. 26 CHOLESTEROL INTERPRETATION: Desirable: Less than 200 MG/DL Borderline-High Risk: 200-239 MG/DL High-Risk: 240 MG/DL and over 27 HDL INTERPRETATION: Undesirable: High Risk: Less than 40 MG/DL Desirable: Low Risk: Greater than 60 MG/DL 28 LDL INTERPRETATION: Low Risk Optimal Level: LDL Less than 100 MG/DL Near or Above Optimal: LDL 100-129 MG/DL Borderline High Risk: LDL 130-159 MG/DL High Risk: LDL 160-189 MG/DL Very High Risk: LDL Greater than 189 MG/DL 29 Anion gap measurement may be of limited value in the presence of any alkalosis, especially in a combined acid base disorder. . 30 Because ethnic data is not always readily available, this report includes an eGFR for both -Americans and non- Americans. The National Kidney Disease Education Program (NKDEP) does not endorse the use of the MDRD equation for patients that are not between the ages of 18 and 70, are , have extremes of body size, muscle mass, or nutritional status, or are non- or non-. According to the National Kidney Foundation, irrespective of diagnosis, the stage of the disease is based on the level of kidney function: Stage Description GFR(mL/min/1.73 m(2)) 1 Kidney damage with normal or decreased GFR 90 2 Kidney damage with mild decrease in GFR 60-89 3 Moderate decrease in GFR 30-59 4 Severe decrease in GFR 15-29 5 Kidney failure <15 (or dialysis) 31 Anion gap measurement may be of limited value in the presence of any alkalosis, especially in a combined acid base disorder. . 32 A metabolite of Naproxen, O-desmethylnaproxen, has been shown to interfere with the Jendrassik-Maben method for measuring total bilirubin. Samples from patients who have taken Naproxen have shown spurious elevation in total bilirubin levels. 33 Because ethnic data is not always readily available, this report includes an eGFR for both -Americans and non- Americans. The National Kidney Disease Education Program (NKDEP) does not endorse the use of the MDRD equation for patients that are not between the ages of 18 and 70, are , have extremes of body size, muscle mass, or nutritional status, or are non- or non-. According to the National Kidney Foundation, irrespective of diagnosis, the stage of the disease is based on the level of kidney function: Stage Description GFR(mL/min/1.73 m(2)) 1 Kidney damage with normal or decreased GFR 90 2 Kidney damage with mild decrease in GFR 60-89 3 Moderate decrease in GFR 30-59 4 Severe decrease in GFR 15-29 5 Kidney failure <15 (or dialysis) 34 Anion gap measurement may be of limited value in the presence of any alkalosis, especially in a combined acid base disorder. . 35 Note change in reference range as of 06/25/08. The change was based on recommendations from the [place] [employer]. 36 Please note change in reference range effective 08 . 37 CHOLESTEROL INTERPRETATION: Desirable: Less than 200 MG/DL Borderline-High Risk: 200-239 MG/DL High-Risk: 240 MG/DL and over 38 HDL INTERPRETATION: Undesirable: High Risk: Less than 40 MG/DL Desirable: Low Risk: Greater than 60 MG/DL 39 LDL INTERPRETATION: Low Risk Optimal Level: LDL Less than 100 MG/DL Near or Above Optimal: LDL 100-129 MG/DL Borderline High Risk: LDL 130-159 MG/DL High Risk: LDL 160-189 MG/DL Very High Risk: LDL Greater than 189 MG/DL 40 Less Than 1.0......Low Risk of Cardiovascular Disease 1.0-3.0............Medium Risk (<2 Fold Increase) Greater Than 3.0...High Risk (Approximately 2-Fold Increase) The above guidelines are referenced in "Markers of Inflammation and Cardiovascular Disease: Application to Clinical and Public Health Practice." A Statement for Health Professionals from the Centers for Disease Control and Prevention and the [place] [employer]. (Reference: Circulation 2003 107:499-511) SERUM LEVELS OF HIGH SENSITIVITY C-REACTIVE PROTEIN MEASURED BY THE [employer] LXi 725 SYSTEM SHOULD NOT BE INTERPRETTED ABSOLUTE EVIDENCE OF THE PRESENCE OR ABSENCE OF DISEASE. A HIGH SENSITIVITY CRP VALUE SHOULD BE USED IN CONJUNCTION WITH OTHER PERTINENT CLINICAL AND DIAGNOSTIC INFORMATION. Procedures Date Code Description Status 02/09/2017 84689632 Colonoscopy Completed 07/03/2013 [id number] Colonoscopy Completed 09/12/2012 [id number] Colonoscopy Completed Encounters Type Date Location Provider Dx Diagnosis Office Visit 08/05/2018 12:20p Main Office Brit Tapia MD M54.5 Low back pain M54.16 Radiculopathy, lumbar region Office Visit 05/15/2018 2:40p Main Office Brit Estrella Z00.01 Encounter for MD [facility] general adult medical exam w abnormal findings M77.11 Lateral epicondylitis, right elbow Office Visit 01/30/2017 2:40p Main Office Brit Estrella Z00.01 Encounter for MD [facility] general adult medical exam w abnormal findings Office Visit 04/27/2016 2:20p Main Office Brit Estrella L05.01 Pilonidal cyst MD [facility] with abscess Office Visit 04/19/2016 1:20p Main Office Brit Estrella L05.01 Pilonidal cyst MD [facility] with abscess Office Visit 09/07/2015 3:00p Main Office Brit Estrella Z00.00 Encntr for general MD [facility] adult medical exam w/o abnormal findings R73.01 Impaired fasting glucose E78.2 Mixed hyperlipidemia E66.09 Other obesity due to excess calories Z23 Encounter for immunization Office Visit 06/21/2015 9:20a Main Office Brit Estrella 461.1 Sinusitis Acute MD [facility] Frontal Office Visit 06/17/2015 3:20p Main Office Brit Estrella 079.99 Viral Infection MD [facility] Unspec Office Visit 08/06/2014 1:00p Main Office Brit Estrella 372.71 Conjunctival MD [facility] Hyperemia V04.81 Need For Prophylactic Vaccination & Inoculation/Influenza Office Visit 06/03/2013 2:20p Main Office Brit Estrella 272.2 Hyperlipidemia Mixed MD [facility] 790.21 Impaired Fasting Glucose 278.00 Obesity Unspec 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 536.8 Stomach Dyspepsia & Other Spec Disorders Of Function Office Visit 10/01/2012 9:20a Main Office Brit Tapia 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 272.2 Hyperlipidemia Mixed 790.21 Impaired Fasting Glucose Office Visit 07/18/2012 1:40p Main Office Brit Estrella 569.3 Hemorrhage Rectum & MD [facility] Anus 536.8 Stomach Dyspepsia & Other Spec Disorders Of Function 790.21 Impaired Fasting Glucose V04.81 Need For Prophylactic Vaccination & Inoculation/Influenza Office Visit 11/02/2008 9:40a Main Office Brit Estrella 272.2 Hyperlipidemia Mixed MD [facility] V17.3 History Family Ischemic Heart Disease 278.00 Obesity Unspec Office Visit 10/07/2008 10:20a Main Office Brit Estrella V70.0 Examination General MD [facility] Medical Routine AT [facility] Care Facility 569.3 Hemorrhage Rectum & Anus 278.00 Obesity Unspec V77.91 Screening For Lipoid Disorders V06.1 Mqrrbfkcuy-Hyijytz-Kcfuyoqp Combined (DTaP) Plan of Treatment 08/05/2018 - Brit Tapia, MDM54.5 Low back painNew Medication:Celecoxib 200 mg - 1 by mouth every day with food for 2 weeks and than as needed.Cyclobenzaprine HCL 10 mg - 1/2-1 by mouth every night as neededNew Therapy:Comments:Treatment options with potential risks, general precautions, follow up recommendations, and alternative treatment options discussed with patient in detail. Patient verbalized understanding. Medications related potential side effects, general precautions, follow up recommendations discussed with patient in detail. Patient verbalized understanding. Lifestyle and dietary modifications advised.M54.16 Radiculopathy, lumbar regionNew Medication:Celecoxib 200 mg - 1 by mouth every day with food for 2 weeks and than as needed.New Therapy:Comments:Left L2-3 and L4-5 area symptoms.AllFollow up:F/U offered but he has decided to see me if he is no better.
--- NOTE | 2018-09-02 17:14 | RAD ---
INDICATION: Dizziness COMPARISON: None. TECHNIQUE: Single AP portable view of the chest was obtained. FINDINGS: Image quality is compromised due to the relative inferiority of a portable chest x-ray. The heart and mediastinum exhibit normal size and contour. The lungs are grossly clear. There is no evidence of a large pleural effusion. Visualized bones are normal for the patient's age. IMPRESSION: No radiographic evidence for acute cardiopulmonary abnormality on this portable chest x-ray.
[2018-09-02 17:50] LABS: ABS Basophils 0 10^3/ul (0-0.2); ABS Eosinophils 0.1 10^3/ul (0-0.6); ABS Lymphocytes 1.4 10^3/ul (1.0-4.8); ABS Monocytes 0.9 10^3/ul (0-0.8); ABS Neutrophils 12.9 10^3/ul (1.5-7.7); ABS Nucleated RBC 0 10^3/ul; Eosinophil % 0.3 % (0-6); Hematocrit 46 % (42-52); Hemoglobin 15.7 g/dl (14.0-18.0); Lymphocyte % 8.9 % (25-47); Mean Corpuscular HGB Conc 34 g/dl (31-36); Mean Corpuscular Hemoglobin 29 pg (27-31); Mean Corpuscular Volume 86 fL (80-94); Mean Platelet Volume 7.4 um3 (7.4-10.4); Nucleated Red Blood Cells % 0; Platelet Count 204 10^3/ul (150-450); Red Blood Count 5.36 10^6/ul (4.00-5.40); Red Cell Distribution Width 14 % (10.5-15); White Blood Count 15.2 10^3/ul (3.5-10.8)
[2018-09-02] MEDS ORDERED: Ondansetron INJ* 2 MG/ML VIAL IV ONE (18:21)
--- NOTE | 2018-09-02 19:02 | UC ---
- Progress Note Progress Note: Patient signed out from Dr. Akers pending 2nd troponin. Re-Evaluation - Re-Evaluation First Eval Re-Evaluation Time: 18:31 Comment: Pt is still nauseous. Will wait for second troponin. Course/Dx - Diagnoses Provider Diagnoses: Dizziness Discharge - Discharge Plan Condition: Stable Referrals: Brit Tapia MD [Primary Care Provider] - - Attestation Statements Document Initiated by Scribe: Yes
--- NOTE | 2018-09-02 19:04 | ED ---
Progress - Progress Note Progress Note: Patient was signed out from Dr. Akers pending 2nd troponin. 2nd tropinin level was 0.00. The pt will be D/C with a dx of dizziness. Re-Evaluation - Re-Evaluation First Eval Re-Evaluation Time: 18:31 Comment: Pt is still nauseous. Will wait for second troponin. Course/Dx - Course Course Of Treatment: Patient was signed out from Dr. Akers pending 2nd troponin. 2nd tropinin level was 0.00. The pt will be D/C with a dx of dizziness. The pt is agreeable with this plan. - Diagnoses Provider Diagnoses: Dizziness Discharge - Discharge Plan Condition: Good Disposition: HOME Patient Education Materials: Near Syncope (ED) Referrals: Brit Tapia MD [Primary Care Provider] - 2 Days - Attestation Statements Document Initiated by Scribe: Yes Documenting Scribe: John Mcgrath Provider For Whom Scribe is Documenting (Include Credential): Claude Pereira MD Scribe Attestation: I, John Mcgrath, scribed for Claude Pereira MD on 09/02/18 at 2133.
[2018-09-02 21:43] VITALS: BP 121/69
== END 2018-09-02 21:42 | disposition home or self-care (01) ==
LOC: ED 16:06
DX: R42 Dizziness and giddiness (principal); R51 Headache; R11.0 Nausea
CPT/HCPCS: 36415; 70450; 71045; 80053; 82550; 83605; 83735; 84484; 85025; 85610; 85730; 93005; 99283; J2405